=== PATIENT | male | born 1975 | race American Indian/Alaskan Native ===

== ENCOUNTER 2017-08-30 09:11 | Day surgery (SDC) | payer MEDICAID ==
[2017-08-30 09:56] VITALS: BMI 17.7
[2017-08-30] MEDS ORDERED: Propofol 10 mg/ml Inj (20 ML) ONE (12:04)
[2017-08-30 12:46] VITALS: TEMP 97.9
[2017-08-30 13:26] VITALS: BP 120/74; PULSE 74; RESP 115; O2SAT 98
== END 2017-08-30 13:40 | disposition home or self-care (01) ==
LOC: C.ENDO 09:11
PROVIDERS: ATTEND Internal Medicine Gastroenterology
DX: K29.50 Unspecified chronic gastritis without bleeding (principal); R63.4 Abnormal weight loss; B96.81 Helicobacter pylori [H. pylori] as the cause of diseases classified elsewhere
CPT/HCPCS: 43239; 88305; J2704; J3010